=== PATIENT | male | born 1955 ===

== ENCOUNTER 2017-01-19 15:52 | Emergency (ER) | payer BC ==
[2017-01-19] MEDS ORDERED: 0.9 % SODIUM CHLORIDE 1000ML 1,000 ML IV PRN (17:01)
[2017-01-19] MEDS ORDERED: ONDANSETRON HCL IV 4 MG/2 ML VIAL IV ONE (17:01)
[2017-01-19] MEDS ORDERED: KETOROLAC 30 MG/ML VIAL IVP ONE (17:01)
--- NOTE | 2017-01-19 17:02 | Emergency Department Record ---
History of Present Illness - General Chief Complaint: Abdominal Pain Stated Complaint: PAIN IN UPPER ABD AND BACK Time Seen by Provider: 01/19/17 16:56 Source: Patient, RN notes reviewed Mode of Arrival: Ambulatory - History of Present Illness Initial Comments: right upper quad pain and pain after eating english food today. he also lifted [employer] generator yesterday.Nausea today Onset/Timin -: Days(s) Location: RUQ Radiation: Back Severity: Moderate Quality: Cramping Consistency: Constant Improves With: Nothing Worsens With: Eating Associated Symptoms: Denies other symptoms - Related Data Home Medications Medication Instructions Recorded Confirmed Last Taken Hydrocodone/Acetaminophen 1 tab PO ASDIR PRN 01/19/17 01/19/17 01/16/17 [Hydrocodone/Acetaminophen 7.5mg/325mg] Losartan Potassium [Losartan 25 mg PO DAILY 01/19/17 01/19/17 01/19/17 Potassium] Previous Rx's Medication Instructions Recorded Cyclobenzaprine HCl [Flexeril] 10 mg PO TID #20 tablet 01/19/17 Hydrocodone/Acetaminophen [[place] 1 tab PO Q6H PRN #20 tab 01/19/17 5mg/325mg] Allergies Allergy/AdvReac Type Severity Reaction Status Date / Time No Known Drug Allergies Allergy Verified 01/19/17 16:27 Travel Screening - Travel/Exposure Within Last 30 Days Have you traveled within the last 30 days?: No - Travel/Exposure Within Last Year Have you traveled outside the [place] in the last year?: No - Additonal Travel Details Have you been exposed to anyone with a communicable illness?: No - Travel Symptoms Symptom Screening: None Review of Systems Reviewed: No additional complaints except as noted below Constitutional: Reports: As per HPI. Denies: Chills, Fever, Malaise, Night sweats, Weakness, Weight change Eyes: Reports: As per HPI. Denies: Eye discharge, Eye pain, Photophobia, Vision change ENT: Reports: As per HPI. Denies: Congestion, Dental pain, Ear pain, Epistaxis , Hearing loss, Throat pain Respiratory: Reports: As per HPI. Denies: Cough, Dyspnea, Hemoptysis, Stridor, Wheezes Cardiovascular: Reports: As per HPI. Denies: Arrhythmia, Chest pain, Dyspnea on exertion, Edema, Murmurs, Orthopnea, Palpitations, Paroxysmal nocturnal dyspnea, Rheumatic Fever, Syncope Endocrine: Reports: As per HPI. Denies: Fatigue, Heat or cold intolerance, Polydipsia, Polyuria Gastrointestinal: Reports: As per HPI, Abdominal pain. Denies: Constipation, Diarrhea, Hematemesis, Hematochezia, Melena, Nausea, Vomiting Genitourinary: Reports: As per HPI. Denies: Dysuria, Frequency, Hematuria, Incontinence, Retention, Testicular pain, Testicular mass, Urgency Musculoskeletal: Reports: As per HPI. Denies: Arthralgia, Back pain, Gout, Joint swelling, Myalgia, Neck pain Skin: Reports: As per HPI. Denies: Bruising, Change in color, Change in hair/ nails, Lesions, Pruritus, Rash Neurological: Reports: As per HPI. Denies: Abnormal gait, Confusion, Headache, Numbness, Paresthesias, Seizure, Tingling, Tremors, Vertigo, Weakness Psychiatric: Reports: As per HPI. Denies: Anxiety, Auditory hallucinations, Depression, Homicidal thoughts, Suicidal thoughts, Visual hallucinations Hematological/Lymphatic: Reports: As per HPI. Denies: Anemia, Blood Clots, Easy bleeding, Easy bruising, Swollen glands Past Medical History - SOCIAL HISTORY Smoking Status: Never smoker Alcohol Use: Occasional Drug Use Detail:: Marijuana - RESPIRATORY Hx Respiratory Disorders: No - CARDIOVASCULAR Hx Cardio Disorders: Yes Hx Hypertension: Yes - NEURO Hx Neuro Disorders: No - GI Hx GI Disorders: No - Hx Genitourinary Disorders: No - ENDOCRINE Hx Endocrine Disorders: No - MUSCULOSKELETAL Hx Musculoskeletal Disorders: No - PSYCH Hx Psych Problems: No - HEMATOLOGY/ONCOLOGY Hx Hematology/Oncology Disorders: No Family Medical History Any Significant Family History?: Yes Hx Cancer: Father Hx Heart Disease: Mother Physical Exam - General General Appearance: Alert, Oriented x3, Cooperative, No acute distress - Head Head exam: Normal inspection - Eye Eye exam: Normal appearance, PERRL Pupils: Normal accommodation - ENT ENT exam: Normal exam, Mucous membranes moist, Normal external ear exam, Normal orophraynx, TM's normal bilaterally Ear exam: Normal external inspection. negative: External canal tenderness Nasal Exam: Normal inspection. negative: Discharge, Sinus tenderness Mouth exam: Normal external inspection, Tongue normal Teeth exam: Normal inspection. negative: Dental caries Throat exam: Normal inspection. negative: Tonsillar erythema, Tonsillar exudate - Neck Neck exam: Normal inspection, Full ROM. negative: Tenderness - Respiratory Respiratory exam: Normal lung sounds bilaterally. negative: Respiratory distress - Cardiovascular Cardiovascular Exam: Regular rate, Normal rhythm, Normal heart sounds - GI/Abdominal GI/Abdominal exam: Soft, Normal bowel sounds, Tenderness (right upper quad pain and right flank pain) - Rectal Rectal exam: Deferred - exam: Deferred - Extremities Extremities exam: Normal inspection, Full ROM, Normal capillary refill. negative: Tenderness - Back Back exam: Reports: Normal inspection, Full ROM. Denies: Muscle spasm, Rash noted, Tenderness - Neurological Neurological exam: Alert, Normal gait, Oriented X3, Reflexes normal - Psychiatric Psychiatric exam: Normal affect, Normal mood - Skin Skin exam: Dry, Intact, Normal color, Warm Course Vital Signs 01/19/17 16:33 Temperature 98.8 F Pulse Rate 72 Respiratory 20 Rate Blood Pressure 125/88 Pulse Ox 96 Medical Decision Making - Data Complexity MDM Data: Labs Ordered and/or Reviewed (negative labs) - Lab Data Result diagrams: 01/19/17 17:00 01/19/17 17:00 Disposition Clinical Impression: Abdominal pain Qualifiers: Abdominal location: right upper quadrant Qualified Code(s): R10.11 - Right upper quadrant pain Strain of lumbar paraspinal muscle Qualifiers: Encounter type: initial encounter Qualified Code(s): S39.012A - Strain of muscle, fascia and tendon of lower back, initial encounter Disposition: Home, Self-Care Condition: (1) Good Instructions: Low Back Strain (ED) Additional Instructions: follow up with family Dr. roldan to back Prescriptions: Cyclobenzaprine HCl [Flexeril] 10 mg PO TID #20 tablet Hydrocodone/Acetaminophen [[place] 5mg/325mg] 1 tab PO Q6H PRN #20 tab PRN Reason: Pain - General Forms: Patient Portal Access Time of Disposition: 19:10 Quality - Quality Measures Quality Measures: N/A - Blood Pressure Screening Does Patient Have Any of the Following: No Blood Pressure Classification: Pre-Hypertensive BP Reading Systolic Measurement: 125 Diastolic Measurement: 88 Screening for High Blood Pressure: < Pre-Hypertensive BP, F/U Documented > [ G8950] Pre-Hypertensive Follow-up Interventions: Referral to alternative/primary care provider.
[2017-01-19 17:30] LABS: URINE APPEARANCE CLEAR; URINE BILIRUBIN NEGATIVE (NEGATIVE); URINE BLOOD NEGATIVE (NEGATIVE); URINE COLOR YELLOW; URINE GLUCOSE (UA) NEGATIVE (NEGATIVE); URINE KETONE NEGATIVE (NEGATIVE); URINE LEUKOCYTE ESTERASE NEGATIVE (NEGATIVE); URINE NITRITE POSITIVE (NEGATIVE); URINE PROTEIN NEGATIVE (NEGATIVE); URINE UROBILINOGEN 0.2 E.U./dL (0.20 - 1.00)
[2017-01-19 17:36] LABS: BASO % 0.2 % (0-6); EOS % 0.9 % (0-6); GRAN % 73.2 % (47-80); HEMATOCRIT 41.6 % (42.0-52.0); HEMOGLOBIN 14.2 gm/dl (14.0-18.0); LYMPH % 15.1 % (16-45); MEAN CELL VOLUME 96.3 fl (81-97); MEAN CORPUSCULAR HGB CONC 34.1 g/dl (32-36); MEAN PLATELET VOLUME 10.2 fl (7.4-10.4); MONO % 10.6 % (0-9); PLATELET COUNT 227 K/uL (130-400); RED BLOOD COUNT 4.32 M/uL (4.40-5.70); RED CELL DISTRIBUTION WIDTH 12.7 % (11.5-14.5); WHITE BLOOD COUNT W/O DIFF 9.8 K/uL (4.2-12.2)
[2017-01-19 17:47] LABS: URINE EPITHELIAL CELLS 0 - 2 (FEW); URINE RBC 0 - 2 (NONE SEEN); URINE WBC 0 - 2 (0-2/hpf)
[2017-01-19 17:51] LABS: ALBUMIN 4.1 g/dL (4.0-5.0); ALKALINE PHOSPHATASE 76 U/L (40-129); ALT/SGPT 11 U/L (<41); AST/SGOT 19 U/L (10.0-50.0); BILIRUBIN,DIRECT 0.2 mg/dL (0-0.3); BLOOD UREA NITROGEN 40.6 mg/dL (17.4-49.2); CREATININE 0.8 mg/dL (0.7-1.2); EST GLOMERULAR FILTRATION RATE > 60 mL/min; GLUCOSE,RANDOM 100 mg/dL (74-109); LIPASE 15 U/L (13-60); TOTAL PROTEIN 6.8 g/dL (6.6-8.7)
[2017-01-19 17:54] LABS: MEAN CORPUSCULAR HEMOGLOBIN 32.8 pg (27-33)
--- NOTE | 2017-01-20 10:55 | ULTRASOUND REPORT ---
EXAM: COMPLETE EMERGENCY ABDOMEN ULTRASOUND HISTORY: EPIGASTRIC AND RIGHT UPPER QUADRANT PAIN FOR ONE DAY. TECHNIQUE: Complete real-time ultrasound examination of the abdomen was obtained. Comparison: None. FINDINGS: The majority of the pancreas was visualized and appears essentially negative with no pancreatic mass or peripancreatic fluid collection evident. The abdominal aorta appears negative with no aneurysm seen. The IVC was negative as seen. There is a single small echogenic focus in the right lobe of the liver measuring only about 1.2 cm in size, nonspecific although probably representing a small incidental cavernous hemangioma. No other hepatic mass identified. No gallstones identified within the gallbladder. No pericholecystic fluid collection evident. Mild diffuse prominence of the gallbladder wall may simply be due to incomplete distention. The right kidney is identified measuring about 10.1 cm in length with no hydronephrosis evident. The common duct is seen, slightly prominent at about 8.7 mm in diameter. Correlation with serum bilirubin is suggested. The left kidney measures 11.8 cm in length with no hydronephrosis evident. The spleen appears negative. IMPRESSION: 1. NO GALLSTONES IDENTIFIED. MILD DIFFUSE PROMINENCE OF THE GALLBLADDER WALL MAY SIMPLY BE DUE TO INCOMPLETE DISTENTION. 2. SLIGHT PROMINENCE OF THE COMMON DUCT MEASURING ABOUT 8.7 MM IN DIAMETER. NO INTRAHEPATIC BILIARY DILATATION SEEN. CORRELATION WITH SERUM BILIRUBIN IS SUGGESTED. 3. SINGLE SMALL, APPROXIMATELY 1.2 CM ECHOGENIC FOCUS RIGHT LOBE OF THE LIVER IS NONSPECIFIC ALTHOUGH PROBABLY A SMALL INCIDENTAL CAVERNOUS HEMANGIOMA. 4. THE REMAINDER OF THE ABDOMEN ULTRASOUND APPEARED NEGATIVE. NO HYDRONEPHROSIS IDENTIFIED ON EITHER SIDE. JOB NUMBER: [id number] MTDD
== END 2017-01-19 19:23 | disposition home or self-care (01) ==
LOC: ER 15:52
DX: S39.012A Strain of muscle, fascia and tendon of lower back, initial encounter (principal); R10.11 Right upper quadrant pain; R11.0 Nausea; X50.0XXA Overexertion from strenuous movement or load, initial encounter
CPT/HCPCS: 99284 ×2; 96374; 96375; 83690; 85025; 80076; 80048; 81001; 76700; J1885; J2405

== ENCOUNTER 2019-06-22 00:46 | Emergency (ER) | payer MEDICARE, BC ==
[2019-06-22] MEDS ORDERED: ACETAMINOPHEN 325 MG TAB PO ONE (01:01)
--- NOTE | 2019-06-22 01:06 | Emergency Department Record ---
History of Present Illness - General Chief complaint: ENT Stated complaint: SORE THROAT Time Seen by Provider: 06/22/19 00:53 Source: Patient Mode of Arrival: Ambulatory Limitations: No limitations - History of Present Illness Initial comments: The patient is here due to a 2 day hx of mainly a ST with nasal congestion, body aches, mild CHUN, and dry cough. He did get a flu shot this year. The patient denies any CP, SOB, back pain, neck pain, voice changes, vomiting or diarrhea. He states no one is ill at home. MD complaint: Sore throat Onset/Timin -: Days(s) Severity: Mild Quality: Aching Consistency: Constant Improves with: None Worsens with: Position Associated Symptoms: Cough, Fever, Pain with swallowing, Sore throat - Related Data Home Medications Medication Instructions Recorded Confirmed Last Taken Varenicline Tartrate [Chantix] 0.5 mg PO DAILY 06/22/19 06/22/19 06/21/19 Previous Rx's Medication Instructions Recorded Prednisone [Prednisone 20Mg] 40 mg PO DAILY #6 tab 06/22/19 Allergies Allergy/AdvReac Type Severity Reaction Status Date / Time No Known Drug Allergies Allergy Verified 01/19/17 16:27 Travel/Exposure Screening - Travel/Exposure Within Last 30 Days Have you traveled within the last 30 days?: No - Travel/Exposure Within Last Year Have you traveled outside the [place] in the last year?: No - Additonal Travel/Exposure Details Have you been exposed to anyone with a communicable illness?: No - Travel Symptoms Symptom Screening: None Review of Systems Constitutional: Reports: Chills, Malaise. Denies: Fever Eyes: Denies: Eye discharge ENT: Reports: Congestion, Throat pain Respiratory: Reports: Cough. Denies: Dyspnea Past Medical History - SOCIAL HISTORY Smoking Status: Former smoker Alcohol Use: Occasional Drug Use: None - RESPIRATORY Hx Respiratory Disorders: No - CARDIOVASCULAR Hx Cardio Disorders: Yes Hx Hypertension: Yes - NEURO Hx Neuro Disorders: No - GI Hx GI Disorders: No - Hx Genitourinary Disorders: No - ENDOCRINE Hx Endocrine Disorders: No - MUSCULOSKELETAL Hx Musculoskeletal Disorders: No - PSYCH Hx Psych Problems: No - HEMATOLOGY/ONCOLOGY Hx Hematology/Oncology Disorders: No Family Medical History Any Significant Family History?: Yes Hx Cancer: Father Hx Heart Disease: Mother Physical Exam - General General Appearance: Alert, Oriented x3, Cooperative, No acute distress - Head Head exam: Atraumatic, Normocephalic - Eye Eye exam: Normal appearance, PERRL. negative: Conjunctival injection - ENT ENT exam: TM's normal bilaterally Throat exam: Tonsillar erythema. negative: Normal inspection, Tonsillomegaly, Tonsillar exudate, R peritonsillar mass, L peritonsillar mass - Neck Neck exam: Normal inspection, Full ROM. negative: Lymphadenopathy, Meningismus, Tenderness - Respiratory Respiratory exam: Normal lung sounds bilaterally. negative: Respiratory distress - Cardiovascular Cardiovascular Exam: Regular rate, Normal rhythm, Normal heart sounds - GI/Abdominal GI/Abdominal exam: Soft, Normal bowel sounds. negative: Tenderness - Extremities Extremities exam: Normal inspection, Full ROM, Normal capillary refill. negative: Tenderness - Neurological Neurological exam: Alert, Normal gait. negative: Abnormal gait, Motor sensory deficit - Psychiatric Psychiatric exam: negative: Anxious Course Vital Signs 06/22/19 00:51 Temperature 98.4 F Pulse Rate [ 74 Left] Respiratory 16 Rate Blood Pressure 148/96 [Left] Pulse Ox 95 - Reevaluation(s) Reevaluation #1: The patient is doing much better at this time. He states the pain is much improved and he is speaking in full sentences with a normal voice. I did explain the fact the Strep and Flu are neg and the xrays all normal. I do believe the patient has a viral pharyngitis and we will continue him on a short course of Prednisone for home. He understands the need to return for any worsening symptoms. 06/22/19 02:14 Medical Decision Making - Data Complexity MDM Data: Labs Ordered and/or Reviewed (Strep and Flu: Neg), X-Ray Ordered and/or Reviewed - Radiology Data Radiology results: Report reviewed (CXR and ST Neck: Neg per Rad.) Disposition Disposition: Discharge Clinical Impression: Pharyngitis Qualifiers: Pharyngitis/tonsillitis etiology: other specified organisms Qualified Code(s): J02.8 - Acute pharyngitis due to other specified organisms Disposition: Home, Self-Care Condition: (2) Stable Instructions: Pharyngitis (ED) Additional Instructions: Please take Tylenol for pain along with the Prednisone. Please see your doctor next week for recheck and to have your high blood pressure evaluated further. Return to the ER for any worsening symptoms, fever, or any trouble breathing. Prescriptions: Prednisone [Prednisone 20Mg] 40 mg PO DAILY #6 tab Forms: Patient Portal Access Time of Disposition: 02:14 Quality - Quality Measures Quality Measures: N/A - Blood Pressure Screening View Details: Yes Does Patient Have Any of the Following: No Blood Pressure Classification: Hypertensive Reading Systolic Measurement: 136 Diastolic Measurement: 103 Screening for High Blood Pressure: < First Hypertensive BP, F/U Documented > [G8950] First Hypertensive Follow-up Interventions: Referral to alternative/primary care provider.
--- NOTE | 2019-06-22 01:26 | RADIOLOGY REPORT ---
EXAMINATION: Two View Chest Radiographs EXAM DATE: 06/22/2019 1:24 AM TECHNIQUE: Frontal and lateral views INDICATION: cough COMPARISON: None ENCOUNTER: Not applicable FINDINGS: The heart, mediastinum, and pulmonary vasculature are normal. No lung consolidation or pleural effu sions are present. IMPRESSION: No acute pulmonary disease process Dictated by: Yanet Mcmillan DO on 06/22/2019 1:18 AM. .
[2019-06-22 01:27] LABS: INFLUENZA A NEGATIVE (NEGATIVE); INFLUENZA B NEGATIVE (NEGATIVE); STREP A SCREEN NEGATIVE (NEGATIVE)
[2019-06-22] MEDS ORDERED: PREDNISONE 20 MG TAB PO ONE (01:33)
--- NOTE | 2019-06-22 02:07 | RADIOLOGY REPORT ---
EXAMINATION: Soft Tissue Neck EXAM DATE: 06/22/2019 2:01 AM TECHNIQUE: AP and lateral INDICATION: ST COMPARISON: None ENCOUNTER: Initial FINDINGS: Epiglottis appears normal. Airway is patent. Prevertebral soft tissues are normal. Mild degenerative change of the cervical spine IMPRESSION: Unremarkable soft tissue of the neck examination Dictated by: Yanet Mcmillan DO on 06/22/2019 1:59 AM. .
== END 2019-06-22 02:22 | disposition home or self-care (01) ==
LOC: ER 00:46
DX: J02.8 Acute pharyngitis due to other specified organisms (principal); R05 Cough; R51 Headache; I10 Essential (primary) hypertension; Z87.891 Personal history of nicotine dependence
CPT/HCPCS: 70360; 71046; 87400; 87880; 99284; J7512